=== PATIENT | male | born 1965 | race Hispanic/Latino ===

== ENCOUNTER 2018-05-03 14:11 | Emergency (ER) | payer MEDICARE ==
[2018-05-03 16:18] LABS: #Basophils 0.1 thou/uL (0.0-0.2); #Eosinphils 0.4 thou/uL (0.0-0.7); #Lymphocytes 1.8 thou/uL (1.20-3.40); #Monocytes 0.6 thou/uL (0.11-0.59); %Basophils 0.7 % (0.0-1.0); %Eosinophils 5.6 % (0.0-10.0); %Lymphocytes 22.9 % (21.0-51.0); %Monocytes 7.3 % (0.0-10.0); %Neutrophils 63.4 % (42.0-75.0); Hemoglobin 12.2 g/dL (14.0-18.0); Mean Corpuscular HGB CONC 32.5 g/dL (32.0-36.0); Mean Corpuscular Hemoglobin 30.9 pg (27.0-31.0); Mean Platelet Volume 6.9 fL (7.4-10.4); Platelet Count 258 thou/uL (130-400); RBC Distribution Width 13.3 % (11.5-14.5); Red Blood Cell (RBC) Count 3.94 mill/uL (4.70-6.10); White Blood Cell (WBC) Count 7.8 thou/uL (4.8-10.8)
[2018-05-03] MEDS ORDERED: HYDROcodone/Acetaminophen 10/325 mg Tablet ONE (16:36)
[2018-05-03 16:39] LABS: ALT (SGPT) 11 U/L (8-55); AST (SGOT) 13 U/L (5-34); Albumin 4.3 g/dL (3.5-5.0); Alkaline Phosphatase 95 U/L (40-150); Anion Gap 15 mmol/L (10-20); BUN (Urea Nitrogen) 24 mg/dL (8.4-25.7); Bilirubin, Total 0.8 mg/dL (0.2-1.2); Calc. Creatinine Clearance 0 mL/min (70-130); Calcium 9.1 mg/dL (7.8-10.44); Carbon Dioxide 31 mmol/L (22-29); Chloride 97 mmol/L (98-107); Estimated GFR-MDRD 9; Globulin 3.2 g/dL (2.4-3.5); Glucose 87 mg/dL (70-105); Protein, Total 7.5 g/dL (6.0-8.3); Sodium 139 mmol/L (136-145)
--- NOTE | 2018-05-03 16:43 | RAD ---
LEFT FOOT RADIOGRAPHS 3 VIEWS: Date: 05/03/18 PROVIDED CLINICAL HISTORY: Wound to bottom of left heel. FINDINGS: Extensive regional vascular calcifications are seen. There is no evidence for fracture or other acute osseous abnormality. Alignment appears anatomic. Joint spaces appear preserved. Soft tissues appear otherwise radiographically unremarkable. IMPRESSION: Atherosclerosis without evidence for an acute osseous abnormality. POS: OFF
== END 2018-05-03 16:59 | disposition home or self-care (01) ==
LOC: ERS 14:11
DX: L08.9 Local infection of the skin and subcutaneous tissue, unspecified (principal); I13.2 Hypertensive heart and chronic kidney disease with heart failure and with stage 5 chronic kidney disease, or end stage renal disease; I50.9 Heart failure, unspecified; N18.6 End stage renal disease; E78.00 Pure hypercholesterolemia, unspecified; E11.22 Type 2 diabetes mellitus with diabetic chronic kidney disease; Z79.82 Long term (current) use of aspirin; Z79.891 Long term (current) use of opiate analgesic; Z79.899 Other long term (current) drug therapy
CPT/HCPCS: 80053; 85025

== ENCOUNTER 2018-05-22 12:25 | Emergency (ER) | payer MEDICARE ==
--- NOTE | 2018-05-22 14:16 | RAD ---
RADIOGRAPH LEFT FOOT 3 VIEWS: Date: 05/22/18 HISTORY: 52-year-old male with left foot ulcer. FINDINGS: There is diffuse osteopenia. Atherosclerotic calcification of large number of blood vessels throughou t the foot and all toes. No destructive osseous lesion identified. No fracture. IMPRESSION: 1. Extensive atherosclerosis is evidence for diabetes mellitus and/or chronic renal failure. 2. No destructive osseous lesion identified. POS: SANDI
== END 2018-05-22 15:07 | disposition home or self-care (01) ==
LOC: ERS 12:25
DX: E11.621 Type 2 diabetes mellitus with foot ulcer (principal); I13.2 Hypertensive heart and chronic kidney disease with heart failure and with stage 5 chronic kidney disease, or end stage renal disease; I50.9 Heart failure, unspecified; N18.6 End stage renal disease; E11.22 Type 2 diabetes mellitus with diabetic chronic kidney disease; E78.00 Pure hypercholesterolemia, unspecified; Z79.899 Other long term (current) drug therapy; Z79.82 Long term (current) use of aspirin

== ENCOUNTER 2018-08-14 18:15 | Emergency (ER) | payer MEDICARE ==
[2018-08-14 19:14] LABS: #Eosinphils 0.4 thou/uL (0.0-0.7); #Lymphocytes 1.3 thou/uL (1.20-3.40); #Monocytes 0.6 thou/uL (0.11-0.59); #Neutrophils 6.1 thou/uL (1.40-6.50); %Eosinophils 4.5 % (0.0-10.0); %Monocytes 7.2 % (0.0-10.0); %Neutrophils 73.3 % (42.0-75.0); Mean Corpuscular HGB CONC 31.7 g/dL (32.0-36.0); Mean Corpuscular Hemoglobin 31.4 pg (27.0-31.0); Mean Platelet Volume 7.2 fL (7.4-10.4); Platelet Count 282 thou/uL (130-400); RBC Distribution Width 12.8 % (11.5-14.5); Red Blood Cell (RBC) Count 3.18 mill/uL (4.70-6.10); White Blood Cell (WBC) Count 8.3 thou/uL (4.8-10.8)
[2018-08-14 19:37] LABS: AST (SGOT) 15 U/L (5-34); Anion Gap 18 mmol/L (10-20); Bilirubin, Total 0.5 mg/dL (0.2-1.2); Calc. Creatinine Clearance 0 mL/min (70-130); Calcium 10.2 mg/dL (7.8-10.44); Carbon Dioxide 29 mmol/L (22-29); Chloride 93 mmol/L (98-107); Estimated GFR-MDRD 6; Potassium 5.3 mmol/L (3.5-5.1); Protein, Total 7.4 g/dL (6.0-8.3); Sodium 135 mmol/L (136-145)
[2018-08-14 19:47] LABS: ALT (SGPT) 8 U/L (8-55); Alkaline Phosphatase 67 U/L (40-150); BUN (Urea Nitrogen) 35 mg/dL (8.4-25.7); CK (CPK) 72 U/L (30-200); Globulin 3.4 g/dL (2.4-3.5); Glucose 101 mg/dL (70-105)
--- NOTE | 2018-08-14 20:10 | RAD ---
THREE VIEWS LEFT FOOT: 08/14/18 HISTORY: Infection. COMPARISON: 07/20/18. FINDINGS: Stable, extensive vascular calcification. No significant changes in the soft tissues. No evidence of new soft tissue swelling. No fracture. No cortical irregularity or periosteal reaction. There is diff use bone demineralization. Lisfranc alignment is maintained. No radiographic evidence of osteomyelitis. Ulceration noted on the plantar surface of the heel is les s event on the current exam. IMPRESSION: No radiographic evidence of osteomyelitis. POS: PPP
[2018-08-14] MEDS ORDERED: cloNIDine 0.1 MG TAB ONE (20:54)
== END 2018-08-14 21:07 | disposition home or self-care (01) ==
LOC: ERS 18:15
DX: E11.621 Type 2 diabetes mellitus with foot ulcer (principal); L97.429 Non-pressure chronic ulcer of left heel and midfoot with unspecified severity; I13.2 Hypertensive heart and chronic kidney disease with heart failure and with stage 5 chronic kidney disease, or end stage renal disease; I50.9 Heart failure, unspecified; N18.6 End stage renal disease; Z79.82 Long term (current) use of aspirin; Z79.899 Other long term (current) drug therapy; Z79.891 Long term (current) use of opiate analgesic
CPT/HCPCS: 36415; 36416; 80053; 82550; 83605; 85025; 85652; 86140; 87070; 87076; 87205; 94760

== ENCOUNTER 2018-09-23 16:05 | Outpatient (CLI) | payer MEDICARE ==
--- NOTE | 2018-09-23 22:08 | HP ---
HISTORY OF PRESENT ILLNESS: Mr. Rory Puga is a very pleasant 53-year-old gentleman, accompanied by his , who presents [facility] for evaluation of an ulceration of the left heel. The patient's states that Mr. Saba Puga has been seen by Dr. Arrieta at [facility] on 3 occasions. She states that Mr. Saba Puga was also seen by his primary care physician, Dr. Rodriguez and at this time was referred to the [facility] for further evaluation and treatment. PAST MEDICAL HISTORY: 1. Diabetes mellitus. 2. Hypertension. 3. End-stage renal disease. 4. Cardiomyopathy. 5. Anemia. 6. Coronary artery disease. 7. Peripheral vascular disease. PAST SURGICAL HISTORY: 1. Incision and drainage of right foot abscess. 2. Washout of right foot and right 4th toe amputation. 3. Right great toe amputation. 4. Right [id number] amputation. 5. Dialysis access procedures. 6. Left eye surgery. MEDICATIONS: The patient does not have a list of his medications with him today. ALLERGIES: NO KNOWN DIAGNOSED ALLERGIES. SOCIAL HISTORY: Social history is negative for tobacco or EtOH use. FAMILY HISTORY: Family history is significant for diabetes mellitus. The patient's father was diagnosed with diabetes mellitus. Family history is negative for coronary artery disease. PHYSICAL EXAMINATION: VITAL SIGNS: Temperature 98.2, pulse 72, respirations 18, blood pressure 229/107. GENERAL: A 53-year-old gentleman, lying on stretcher in examination room, in no acute distress. HEENT: Normocephalic, atraumatic. NECK: No nuchal rigidity. CHEST: Clear to auscultation. CV: Regular rate and rhythm. ABDOMEN: Soft. EXTREMITIES: An ulceration of the left heel is present, which measures approximately 6.2 x 6.5 cm. The ulceration is covered by dry, hard eschar. No drainage is associated with the wound. No erythema of the skin surrounding the wound is present. No maceration of the skin of the periwound is noted. A dorsalis pedis pulse is easily palpable on the left. No significant edema of the left foot or lower leg is present on exam today. NEURO: Grossly nonfocal. ASSESSMENT AND PLAN: 1. Left heel ulceration as described above. The patient and his have been instructed to keep the ulceration clean and dry and covered with Kerlix and ABD will be utilized at the time of dressing changes as needed. I have recommended to the patient that he return to clinic in 3 weeks for fitting with a diabetic shoe with an insert. The patient has been instructed to stay off his feet as much as possible and utilize a wheelchair. Arrangements will be made for MRI of the left heel to look for findings suggestive of osteomyelitis. Arrangements will also be made for vascular evaluation. The patient and his understand and are in agreement with the preceding treatment plan. 2. Hypertension. The patient has been asked to report to the emergency department upon his discharge from clinic today because of his elevated blood pressures in clinic of 229/107 and 231/102. 3. Diabetes mellitus. The patient's Accu-Chek in clinic today is 146. The patient has been told that for optimal wound healing, his blood glucoses should remain below 150. 4. End-stage renal disease. 5. Nonischemic cardiomyopathy. 6. Anemia. 7. Coronary artery disease. 8. Peripheral vascular disease. Job ID: [id number]
== END 2018-09-23 16:06 | disposition home or self-care (01) ==
LOC: WCC 16:05
PROVIDERS: ATTEND Family Medicine
DX: E11.621 Type 2 diabetes mellitus with foot ulcer (principal); L97.429 Non-pressure chronic ulcer of left heel and midfoot with unspecified severity; I25.10 Atherosclerotic heart disease of native coronary artery without angina pectoris; I73.9 Peripheral vascular disease, unspecified; I12.0 Hypertensive chronic kidney disease with stage 5 chronic kidney disease or end stage renal disease; E11.22 Type 2 diabetes mellitus with diabetic chronic kidney disease; N18.6 End stage renal disease; D63.1 Anemia in chronic kidney disease; I42.8 Other cardiomyopathies
CPT/HCPCS: 36416

== ENCOUNTER 2018-10-11 10:00 | Day surgery (SDC) | payer MEDICARE ==
[2018-10-07 17:51] VITALS: BMI 30.9
[2018-10-11 11:10] LABS: #Eosinphils 0.2 thou/uL (0.0-0.7); #Lymphocytes 0.8 thou/uL (1.20-3.40); #Monocytes 0.5 thou/uL (0.11-0.59); #Neutrophils 5.1 thou/uL (1.40-6.50); %Basophils 0.7 % (0.0-1.0); %Eosinophils 3.5 % (0.0-10.0); %Lymphocytes 12.3 % (21.0-51.0); %Monocytes 7.4 % (0.0-10.0); Mean Corpuscular HGB CONC 32.3 g/dL (32.0-36.0); Mean Corpuscular Hemoglobin 31.7 pg (27.0-31.0); Mean Corpuscular Volume 98.2 fL (78.0-98.0); Platelet Count 300 thou/uL (130-400); Red Blood Cell (RBC) Count 3.47 mill/uL (4.70-6.10); White Blood Cell (WBC) Count 6.7 thou/uL (4.8-10.8)
[2018-10-11 11:34] LABS: Anion Gap 17 mmol/L (10-20); BUN (Urea Nitrogen) 28 mg/dL (8.4-25.7); Calc. Creatinine Clearance 15 mL/min (70-130); Calcium 9.5 mg/dL (7.8-10.44); Carbon Dioxide 31 mmol/L (22-29); Chloride 94 mmol/L (98-107); Estimated GFR-MDRD 9; Glucose 98 mg/dL (70-105); Potassium 4.2 mmol/L (3.5-5.1); Sodium 138 mmol/L (136-145)
[2018-10-11] MEDS ORDERED: Iopamidol 370 76% 100 ML VIAL ONE (12:01)
[2018-10-11] MEDS ORDERED: Midazolam HCl 2 mg/2 ml Vial ONE (12:04)
[2018-10-11] MEDS ORDERED: Fentanyl 100 MCG/2 ML VIAL ONE (12:04)
[2018-10-11] MEDS ORDERED: hydrALAZINE 20 MG/ML VIAL ONE (12:21)
[2018-10-11] MEDS ORDERED: Nitroglycerin 4.9 GM Bottle ONE (12:22)
[2018-10-11] MEDS ORDERED: Metoprolol Tartrate 5 MG/5 ML VIAL ONE (12:35)
[2018-10-11] MEDS ORDERED: Acetaminophen 500 MG TAB ONE (13:20)
--- NOTE | 2018-10-11 17:38 | OP ---
DATE OF PROCEDURE: 10/11/2018 PREOPERATIVE DIAGNOSIS: Left heel ulcer. POSTOPERATIVE DIAGNOSIS: Left heel ulcer. PROCEDURES PERFORMED: 1. Ultrasound-guided right common femoral artery access. 2. Abdominal aortogram with bilateral pelvic runoff. 3. Left common femoral artery angiogram with left leg runoff. FINDINGS: Normal aorta and iliac system. Heavy calcification within the femoral, SFA, popliteal, and tibial arteries. The common femoral, profunda femoris, superficial femoral, popliteal arteries were all widely patent without evidence of atherosclerotic encroachment in the lumen. Anterior tibial artery had a high takeoff with good flow and no atherosclerotic encroachment all the way down to the ankle, where it terminated on the foot. The tibioperoneal trunk, peroneal, and posterior tibial arteries were patent, but both the peroneal and posterior tibial arteries terminated within the calf. CONTRAST: 16 mL. TOTAL FLUORO TIME: 2.5 minutes. ProGlide was used to close his femoral artery. DESCRIPTION OF PROCEDURE: After consent was obtained, the patient was brought to the clinical lab scientist and placed in supine position on clinical lab scientist table. Appropriate monitoring was placed. Groins were prepped and draped in the usual sterile fashion. Using ultrasound guidance, the right common femoral artery was accessed after anesthetizing with 1% lidocaine. A 5-Albanian sheath was placed and a Contra catheter placed in the abdominal aorta. Hand-injected aortograms performed with no evidence of atherosclerotic encroachment of the lumen in the aorta or iliac arteries. The Contra catheter was guided over the aortic bifurcation down into the common femoral artery. Hand-injected arteriogram was performed, looking down the remainder of the leg. Findings were as above. The patient had significant hypertension throughout this portion of procedure. He was given sublingual nitroglycerin, labetalol, and hydralazine to bring his blood pressure down into the 180s. A ProGlide was deployed with good hemostasis. The patient will be kept in the recovery area for a couple of hours and then discharged home. Job ID: [id number]
== END 2018-10-11 15:09 | disposition home or self-care (01) ==
LOC: CCL 10:00
PROVIDERS: ATTEND Thoracic Surgery (Cardiothoracic Vascular Surgery)
PROC: 04HL33Z Insertion of Infusion Device into Left Femoral Artery, Percutaneous Approach (ICD-10-PCS; principal; 2018-10-11)
DX: E11.51 Type 2 diabetes mellitus with diabetic peripheral angiopathy without gangrene (principal); I70.244 Atherosclerosis of native arteries of left leg with ulceration of heel and midfoot; I70.235 Atherosclerosis of native arteries of right leg with ulceration of other part of foot; I12.0 Hypertensive chronic kidney disease with stage 5 chronic kidney disease or end stage renal disease; E11.22 Type 2 diabetes mellitus with diabetic chronic kidney disease; N18.6 End stage renal disease; D63.1 Anemia in chronic kidney disease; I25.10 Atherosclerotic heart disease of native coronary artery without angina pectoris; I42.9 Cardiomyopathy, unspecified; Z87.891 Personal history of nicotine dependence; Z79.82 Long term (current) use of aspirin; Z79.84 Long term (current) use of oral hypoglycemic drugs; Z79.899 Other long term (current) drug therapy
CPT/HCPCS: 36246; 36415; 36416; 75630; 80048; 85025; C1760; C1769; C1887; J0360; J1644; J2250; J3010; Q9967

== ENCOUNTER 2019-11-30 06:29 | Outpatient (CLI) | payer MEDICARE, OTHER ==
[2019-12-01 17:24] LABS: SARS-CoV-2 MS2 Positive; SARS-CoV-2 N Gene Negative; SARS-CoV-2 S Gene Negative; SARS-CoV-2 orf1ab Negative
== END 2019-11-30 06:30 | disposition home or self-care (01) ==
LOC: LABBT 06:29
PROVIDERS: ATTEND Ophthalmology Retina Specialist
DX: Z01.812 Encounter for preprocedural laboratory examination (principal); Z11.59 Encounter for screening for other viral diseases; H43.11 Vitreous hemorrhage, right eye
CPT/HCPCS: 87635; U0003

== ENCOUNTER 2019-12-01 10:25 | Day surgery (SDC) | payer MEDICARE ==
[2019-11-29 09:53] VITALS: BMI 28.5
[~2019-12-01 10:25] MED LIST: EPINEPHrine 0.3 MG, Dextrose 50% 3 ML in Ophthalmic Irrigation Solution 500 ML IRR SCH; Fentanyl 100 MCG/2 ML VIAL ONE; Midazolam HCl 2 mg/2 ml Vial ONE
[2019-12-01] MEDS ORDERED: Tobramycin/Dexamethasone Ophth Oint 3.5 GM TUBE ONE (10:54)
[2019-12-01] MEDS ORDERED: Bupivacaine PF 0.75% SDV 10 ML ONE (10:54)
[2019-12-01] MEDS ORDERED: Lidocaine 1% PF 5 ML VIAL ONE (10:54)
[2019-12-01] MEDS ORDERED: Triamcinolone 40 MG/ML VIAL ONE (10:54)
[2019-12-01] MEDS ORDERED: PROPOFOL 200 MG/20 ML VIAL ONE (10:54)
[2019-12-01] MEDS ORDERED: CEFAZOLIN 1 GM VIAL ONE (10:54)
[2019-12-01] MEDS ORDERED: Dextrose 50% Abboject 50 ML SYRINGE ONE (10:54)
[2019-12-01] MEDS ORDERED: Lidocaine 4% PF 5 ML AMP ONE (10:54)
[2019-12-01] MEDS ORDERED: Phenylephrine 2.5% Ophth Soln 5 ML BOT ONE (11:15)
[2019-12-01] MEDS ORDERED: Cyclopentolate 1% Opth Drop 2 ML BOT ONE (11:16)
[2019-12-01] MEDS ORDERED: Cyclopentolate 1% Opth Drop 2 ML BOT FS SCH (11:28)
[2019-12-01] MEDS ORDERED: Phenylephrine 2.5% Ophth Soln 5 ML BOT FS SCH (11:28)
[2019-12-01] MEDS ORDERED: Acetaminophen 500 MG TAB PO PRN (11:28)
--- NOTE | 2019-12-02 13:43 | OP ---
DATE OF PROCEDURE: 12/01/2019 PREOPERATIVE DIAGNOSIS: Vitreous hemorrhage, right eye. POSTOPERATIVE DIAGNOSIS: Vitreous hemorrhage, right eye. PROCEDURES: Pars plana vitrectomy, membrane peel, panretinal photocoagulation in the right eye. ANESTHESIA: Local with monitored anesthesia care. DESCRIPTION OF PROCEDURE: The patient was identified in the preop holding area. Appropriate informed consent for the planned surgical procedure on the right eye had been obtained. The patient was transported to the operative suite, where appropriate cardiopulmonary monitoring was established. Local anesthesia was obtained using retrobulbar modified van Lint lid block using 50:50 mixture of 4% lidocaine and 0.75% bupivacaine. The patient was prepped and draped in usual sterile manner for ophthalmic surgery on the right eye. Lid speculum was placed in the right eye and 25-gauge trocar was placed in conjunctiva and sclera superotemporally, inferotemporally, and supranasally. Infusion line was placed inferotemporally. Light pipe vitreous cutter was inserted to the eye. Core vitrectomy was performed. Extensive vitreous hemorrhage was removed from the eye and adherences of the vitreous tube and macula were lysed. No areas of tractional detachment were identified, but epiretinal membranes were peeled from the retinal surface. Panretinal photocoagulation was placed into all non macular areas of the retina. No holes, breaks, or tears were identified. Trocars were removed. The eye was noted to retain pressure well. Retrobulbar Kenalog and sequential Ancef were placed. Antibiotic ointment was placed. The eye was patched and shielded. The patient was taken to postop recovery unit in good condition, having suffered no immediate preop complications. The patient was instructed to keep patch shield on. Avoid lifting or bending. Followup appointment with Dr. Gregory. Job ID: [id number]
== END 2019-12-01 13:45 | disposition home or self-care (01) ==
LOC: SDC 10:25
PROVIDERS: ATTEND Ophthalmology Retina Specialist
PROC: 08T43ZZ Resection of Right Vitreous, Percutaneous Approach (ICD-10-PCS; principal; 2019-12-01)
PROC: 08QE3ZZ Repair Right Retina, Percutaneous Approach (ICD-10-PCS; 2019-12-01)
PROC: 08NE3ZZ Release Right Retina, Percutaneous Approach (ICD-10-PCS; 2019-12-01)
DX: H43.11 Vitreous hemorrhage, right eye (principal); E11.9 Type 2 diabetes mellitus without complications; Z79.82 Long term (current) use of aspirin; Z79.84 Long term (current) use of oral hypoglycemic drugs; Z79.899 Other long term (current) drug therapy
CPT/HCPCS: 36416; J0171; J0690; J2001; J2250; J2704; J3010; J3301; J3490